=== PATIENT | female | born 1940 | race Two or more races ===

== ENCOUNTER 2016-07-07 12:40 | Inpatient (IN) | payer OTHER, MEDICAID ==
[~2016-07-07] VITALS: Ht 165.1 cm; Wt 74.3 kg
[~2016-07-07 12:40] MED LIST: BACL10TA; CRESTOR; LOSA50TA6; METF-312; METO-169; NAPR-607; OMEPRAZOLE DR 20 MG CAPSULE; SIMV-13; SIMVPOW2; TERB250T66
[2016-07-07 13:52] LABS: Basophils # (auto) 0 uL; Basophils % (auto) 0.5 % (0.0-2.0); Eosinophils # (auto) 0.3 uL; Eosinophils % (auto) 3.7 % (0.0-7.0); Hematocrit 42.6 % (36.0-46.0); Lymphocytes # (auto) 2.6 uL; Lymphocytes % (auto) 32.6 % (10.0-50.0); Mean Corpuscular Hemoglobin 28.5 pg (28.0-32.0); Mean Corpuscular Hgb Conc. 32.9 g/dL (32.0-36.0); Mean Corpuscular Volume 86.6 fL (80.0-100.0); Mean Platelet Volume 8.9 fL (7.4-10.4); Monocytes # (auto) 0.4 uL; Neutrophils # (auto) 4.6 uL; Neutrophils % (auto) 58.2 % (37.0-80.0); Platelet Count (auto) 254 10^3/uL (140-450); Red Cell Distribution Width 14.8 % (11.6-16.0); White Blood Cell 7.9 10^3/uL (4.4-10.8)
[2016-07-07 14:09] LABS: Alkaline Phosphatase 92 U/L (45-117); Anion Gap 9 (5-15); Aspartate Aminotransferase 20 U/L (15-37); BUN/Creatinine Ratio 22.8; Bilirubin, Total 0.4 mg/dL (0.2-1.0); Blood Urea Nitrogen 13 mg/dL (7-18); Calcium 9.5 mg/dL (8.5-10.1); Carbon Dioxide 27 mmol/L (21-32); Chloride 106 mmol/L (98-107); GFR African American 134 mL/min; GFR Non-African American 111 mL/min; Glucose 92 mg/dL (74-106); Potassium 3.9 mmol/L (3.5-5.1); Sodium 142 mmol/L (136-145); Total Protein 7.5 g/dL (6.4-8.2)
[2016-07-07 14:10] LABS: Albumin 3.7 g/dL (3.4-5.0)
[2016-07-07 16:13] LABS: Urine RBC None Seen /hpf (0 - 4)
[2016-07-07 17:10] LABS: Urine Bilirubin Negative (Negative); Urine Blood Negative /uL (Negative); Urine Color Yellow (Yellow); Urine Glucose Normal (Normal); Urine Ketone Negative (Negative); Urine Nitrite POSITIVE (Negative); Urine Urobilinogen Normal (Negative)
[2016-07-07] MEDS ORDERED: cefTRIAXone 1GM/50ML D5W 50 ML IV ONE ×2 (17:30→18:45)
[2016-07-07] MEDS ORDERED: LORazepam 0.5 MG TAB PO PRN (18:00)
[2016-07-07] MEDS ORDERED: TEMAZEPAM 15 MG CAP PO PRN (18:00)
[2016-07-07] MEDS ORDERED: MORPHINE SULF INJ 2 MG/ML SYRINGE 1ML IV PRN ×2 (18:00)
[2016-07-07] MEDS ORDERED: DEXTROSE (50%) 50ML SYRG IV PRN (18:00)
[2016-07-07] MEDS ORDERED: PROCHLORPERAZINE EDISYLATE 5 MG/ML 2ML VIAL IV PRN (18:00)
[2016-07-07] MEDS ORDERED: BACLOFEN 10 MG TAB PO PRN (18:00)
[2016-07-07] MEDS ORDERED: ACETAMINOPHEN 500 MG TAB PO PRN (18:00)
[2016-07-07] MEDS ORDERED: NITROGLYCERIN 0.4 MG SL TAB SL PRN (18:00)
[2016-07-07] MEDS: SODIUM CHLORIDE 0.9% 1,000 ML IV SCH (18:36)
[2016-07-07] MEDS ORDERED: ASPirin 81 mg TAB PO ONE (18:45)
[2016-07-07] MEDS ORDERED: METOPROLOL SUCCINATE XL 50 MG TAB PO ONE (18:45)
[2016-07-07 19:04] LABS: Amylase 51 U/L (25-115)
[2016-07-07 22:00] VITALS: BP 118/68
[2016-07-07] MEDS: InsuLIN REG 1unit/0.01ml Soln (100units/ml) SC SCH (22:00)
[2016-07-07] MEDS: ATORVASTATIN 20 MG TAB PO SCH (22:07)
[2016-07-07] MEDS: ACCU-CHEK COMFORT CURVE STRIP VI SCH (22:13)
[2016-07-07 23:50] VITALS: BP 118/68
[2016-07-08 05:00] VITALS: BP 139/74
[2016-07-08] MEDS: ACCU-CHEK COMFORT CURVE STRIP VI SCH ×4 (06:37→22:00)
[2016-07-08] MEDS: LOSARTAN POTASSIUM 50 MG TAB PO SCH (06:37)
[2016-07-08] MEDS: InsuLIN REG 1unit/0.01ml Soln (100units/ml) SC SCH ×4 (06:37→22:00)
[2016-07-08 07:37] LABS: Cholesterol 188 mg/dL (< 200); HDL Cholesterol 46 mg/dL (40-59); LDL Cholesterol 122 mg/dL (< 100); Triglycerides 180 mg/dL (< 150)
[2016-07-08 08:00] VITALS: BP 137/74
[2016-07-08 08:25] VITALS: BP 129/75
[2016-07-08] MEDS: METOPROLOL SUCCINATE XL 50 MG TAB PO SCH (09:14)
[2016-07-08] MEDS: ENOXAPARIN SOD 40 MG/0.4 ML SYRINGE SC SCH (09:15)
[2016-07-08] MEDS: ASPirin 81 mg TAB PO SCH (09:15)
[2016-07-08] MEDS: cefTRIAXone 1GM/50ML D5W 50 ML IV SCH (09:15)
[2016-07-08] MEDS: HYDROcodone-ACET 5/325MG TAB PO PRN (09:32)
[2016-07-08] MEDS: SODIUM CHLORIDE 0.9% 1,000 ML IV SCH ×2 (12:11→20:40)
[2016-07-08 12:28] VITALS: BP 108/71
[2016-07-08 12:30] LABS: Temperature: 24.5 C (20.0-25.0)
[2016-07-08] MEDS ORDERED: SENNA 8.6 MG TAB PO PRN (16:15)
[2016-07-08 16:57] VITALS: BP 121/57
[2016-07-08 22:00] VITALS: BP 147/69
[2016-07-08] MEDS: ATORVASTATIN 20 MG TAB PO SCH (22:37)
[2016-07-09 05:33] VITALS: BP 141/80
[2016-07-09] MEDS: LOSARTAN POTASSIUM 50 MG TAB PO SCH (06:10)
[2016-07-09 06:27] LABS: BUN/Creatinine Ratio 23.9; Calcium 8.8 mg/dL (8.5-10.1); Magnesium 2.3 mg/dL (1.6-2.6); Potassium 3.8 mmol/L (3.5-5.1)
[2016-07-09] MEDS: InsuLIN REG 1unit/0.01ml Soln (100units/ml) SC SCH ×4 (07:00→21:35)
[2016-07-09] MEDS: ACCU-CHEK COMFORT CURVE STRIP VI SCH ×4 (07:06→21:34)
[2016-07-09 09:00] VITALS: BP 146/78
[2016-07-09] MEDS: ENOXAPARIN SOD 40 MG/0.4 ML SYRINGE SC SCH (09:53)
[2016-07-09] MEDS: cefTRIAXone 1GM/50ML D5W 50 ML IV SCH (09:53)
[2016-07-09] MEDS: ASPirin 81 mg TAB PO SCH (09:53)
[2016-07-09] MEDS: METOPROLOL SUCCINATE XL 50 MG TAB PO SCH (09:54)
[2016-07-09] MEDS: SODIUM CHLORIDE 0.9% 1,000 ML IV SCH ×2 (10:00→23:20)
[2016-07-09 15:19] VITALS: BP 154/79
[2016-07-09 17:57] VITALS: BP 127/61
[2016-07-09] MEDS: ATORVASTATIN 20 MG TAB PO SCH (21:34)
[2016-07-09 21:42] VITALS: BP 150/70
[2016-07-10] MEDS: HYDROcodone-ACET 5/325MG TAB PO PRN ×2 (04:20→20:01)
[2016-07-10 05:00] VITALS: BP 150/80
[2016-07-10] MEDS: LOSARTAN POTASSIUM 50 MG TAB PO SCH (06:36)
[2016-07-10] MEDS: ACCU-CHEK COMFORT CURVE STRIP VI SCH ×4 (06:36→22:05)
[2016-07-10] MEDS: InsuLIN REG 1unit/0.01ml Soln (100units/ml) SC SCH ×4 (06:36→22:00)
[2016-07-10 08:49] VITALS: BP 152/76
[2016-07-10] MEDS: ASPirin 81 mg TAB PO SCH (09:15)
[2016-07-10] MEDS: cefTRIAXone 1GM/50ML D5W 50 ML IV SCH (09:15)
[2016-07-10] MEDS: METOPROLOL SUCCINATE XL 50 MG TAB PO SCH (09:16)
[2016-07-10] MEDS: ENOXAPARIN SOD 40 MG/0.4 ML SYRINGE SC SCH (09:16)
[2016-07-10] MEDS: SODIUM CHLORIDE 0.9% 1,000 ML IV SCH (12:40)
[2016-07-10 12:48] VITALS: BP 139/70
[2016-07-10 17:07] VITALS: BP 116/52
[2016-07-10 22:00] VITALS: BP 126/65
[2016-07-10] MEDS: ATORVASTATIN 20 MG TAB PO SCH (22:05)
[2016-07-11] VITALS (7 sets, daily range): BP systolic 124–139; BP diastolic 66–76
[2016-07-11] MEDS: SODIUM CHLORIDE 0.9% 1,000 ML IV SCH ×2 (02:00→15:20)
[2016-07-11] MEDS: ACCU-CHEK COMFORT CURVE STRIP VI SCH ×4 (06:14→22:11)
[2016-07-11] MEDS: LOSARTAN POTASSIUM 50 MG TAB PO SCH (06:14)
[2016-07-11] MEDS: InsuLIN REG 1unit/0.01ml Soln (100units/ml) SC SCH ×4 (06:15→22:00)
[2016-07-11] MEDS: cefTRIAXone 1GM/50ML D5W 50 ML IV SCH (09:37)
[2016-07-11] MEDS: ASPirin 81 mg TAB PO SCH (09:37)
[2016-07-11] MEDS: ENOXAPARIN SOD 40 MG/0.4 ML SYRINGE SC SCH (09:38)
[2016-07-11] MEDS: METOPROLOL SUCCINATE XL 50 MG TAB PO SCH (09:38)
[2016-07-11] MEDS ORDERED: NITR-48 PO (14:11)
[2016-07-11] MEDS: HYDROcodone-ACET 5/325MG TAB PO PRN ×2 (17:07→23:19)
[2016-07-11] MEDS: ATORVASTATIN 20 MG TAB PO SCH (22:11)
[2016-07-12] MEDS: SODIUM CHLORIDE 0.9% 1,000 ML IV SCH (05:32)
[2016-07-12 05:46] VITALS: BP 118/62
[2016-07-12] MEDS: ACCU-CHEK COMFORT CURVE STRIP VI SCH ×2 (06:55→11:30)
[2016-07-12] MEDS: LOSARTAN POTASSIUM 50 MG TAB PO SCH (06:55)
[2016-07-12] MEDS: InsuLIN REG 1unit/0.01ml Soln (100units/ml) SC SCH ×2 (06:55→11:30)
[2016-07-12 07:56] VITALS: BP 106/53
[2016-07-12 08:00] VITALS: BP 106/53
[2016-07-12] MEDS: cefTRIAXone 1GM/50ML D5W 50 ML IV SCH (09:00)
[2016-07-12] MEDS: METOPROLOL SUCCINATE XL 50 MG TAB PO SCH (10:00)
[2016-07-12] MEDS: ASPirin 81 mg TAB PO SCH (10:00)
[2016-07-12 11:37] VITALS: BP 140/75
== END 2016-07-12 13:40 | disposition home or self-care (01) | DRG 872 ==
LOC: ER 12:40 → TELE 12:41 → TELE-WESTW 20:28
PROVIDERS: ADMIT Internal Medicine; ATTEND Internal Medicine
DX: A41.51 Sepsis due to Escherichia coli [E. coli] (principal); N39.0 Urinary tract infection, site not specified; K57.90 Diverticulosis of intestine, part unspecified, without perforation or abscess without bleeding; I10 Essential (primary) hypertension; J45.909 Unspecified asthma, uncomplicated; M06.9 Rheumatoid arthritis, unspecified; E11.9 Type 2 diabetes mellitus without complications; E78.5 Hyperlipidemia, unspecified; E86.0 Dehydration; I15.9 Secondary hypertension, unspecified; M47.9 Spondylosis, unspecified; R31.9 Hematuria, unspecified; M19.90 Unspecified osteoarthritis, unspecified site; Z79.899 Other long term (current) drug therapy; Z86.73 Personal history of transient ischemic attack (TIA), and cerebral infarction without residual deficits
CPT/HCPCS: 36415; 70450; 70551; 71020; 74176; 80048; 80053; 80061; 81001; 82150; 82378; 82550; 82607; 82746; 82962; 83036; 83735; 84443; 84484; 85025; 85379; 86141; 87040; 87086; 87088; 87186; 93005; 96360; 99291; G0434; J0696

== ENCOUNTER 2017-08-19 12:02 | Inpatient (IN) | payer OTHER, MEDICAID ==
[~2017-08-19] VITALS: Ht 162.6 cm; Wt 85.7 kg
[~2017-08-19 12:02] MED LIST changes: -LOSA50TA6; +LOSA50TA6 PO; -METF-312; +METF-370 PO; -NAPR-607; +NAPR500T31 PO; +NITR-48 PO
[2017-08-19 13:39] LABS: Urine WBC None Seen /hpf (0 - 5)
[2017-08-19 14:02] LABS: Urine Bacteria NONE SEEN /hpf (None Seen); Urine Blood Negative /uL (Negative); Urine Specific Gravity 1.008 (1.001-1.035)
[2017-08-19 14:09] LABS: Basophils # (auto) 0 uL; Basophils % (auto) 0.7 % (0.0-2.0); Eosinophils # (auto) 0.3 uL; Eosinophils % (auto) 3.8 % (0.0-7.0); Hematocrit 43.1 % (36.0-46.0); Hemoglobin 14.4 g/dL (12.2-16.2); Lymphocytes # (auto) 2.3 uL; Lymphocytes % (auto) 34.8 % (10.0-50.0); Mean Corpuscular Hemoglobin 28.6 pg (28.0-32.0); Mean Corpuscular Hgb Conc. 33.4 g/dL (32.0-36.0); Mean Corpuscular Volume 85.5 fL (80.0-100.0); Monocytes # (auto) 0.6 uL; Neutrophils # (auto) 3.5 uL; Neutrophils % (auto) 51.7 % (37.0-80.0); Platelet Count (auto) 239 10^3/uL (140-450); Red Blood Cells 5.04 10^6/uL (4.0-5.20); Red Cell Distribution Width 14.1 % (11.8-14.3); White Blood Cell 6.7 10^3/uL (4.4-10.8)
[2017-08-19 14:10] LABS: Alanine Aminotransferase 44 U/L (13-56); Albumin 3.8 g/dL (3.4-5.0); Alkaline Phosphatase 98 U/L (45-117); Anion Gap 10 (5-15); Aspartate Aminotransferase 35 U/L (15-37); BUN/Creatinine Ratio 24.2; Bilirubin, Total 0.3 mg/dL (0.2-1.0); Blood Urea Nitrogen 15 mg/dL (7-18); Calcium 9.1 mg/dL (8.5-10.1); Carbon Dioxide 27 mmol/L (21-32); Chloride 104 mmol/L (98-107); GFR African American 121 mL/min; GFR Non-African American 100 mL/min; Glucose 122 mg/dL (74-106); Potassium 4.1 mmol/L (3.5-5.1); Sodium 141 mmol/L (136-145); Total Protein 7.7 g/dL (6.4-8.2)
[2017-08-19] MEDS ORDERED: SODIUM CHLORIDE 0.9% 1,000 ML IV ONE (17:29)
[2017-08-19] MEDS ORDERED: IPRATROPIUM BROM 0.5 MG/2.5ML INH SOL NEB ONE (20:15)
[2017-08-19] MEDS ORDERED: ALBUTEROL SULF 2.5 MG/0.5ML(0.5%) NEB SOLN NEB ONE (20:15)
[2017-08-19] MEDS ORDERED: LEVOFLOXACIN 750MG 150 ML IV ONE (21:00)
[2017-08-19] MEDS ORDERED: ACETAMINOPHEN 325 MG TAB PO ONE (22:15)
[2017-08-19] MEDS ORDERED: DEXTROSE (50%) 50ML SYRG IV PRN (23:00)
[2017-08-19] MEDS ORDERED: ONDANSETRON HCL 4 MG/2 ML VIAL IV PRN (23:00)
[2017-08-19] MEDS ORDERED: MORPHINE SULFATE 4 MG/ML SYR/VIAL IV PRN (23:00)
[2017-08-19] MEDS ORDERED: HYDROcodone-ACET 5/325MG TAB PO PRN (23:00)
[2017-08-20] VITALS (8 sets, daily range): BP systolic 122–145; BP diastolic 66–82
[2017-08-20] MEDS: ALBUTEROL SULF 2.5 MG/0.5ML(0.5%) NEB SOLN NEB SCH ×4 (00:10→19:16)
[2017-08-20] MEDS: IPRATROPIUM BROM 0.5 MG/2.5ML INH SOL NEB SCH ×4 (00:10→19:17)
[2017-08-20 06:03] LABS: Basophils # (auto) 0 uL; Basophils % (auto) 0.9 % (0.0-2.0); Eosinophils # (auto) 0.3 uL; Eosinophils % (auto) 5.2 % (0.0-7.0); Hematocrit 36.8 % (36.0-46.0); Hemoglobin 12.5 g/dL (12.2-16.2); Lymphocytes # (auto) 2.5 uL; Lymphocytes % (auto) 46.7 % (10.0-50.0); Mean Corpuscular Hemoglobin 29.1 pg (28.0-32.0); Mean Corpuscular Volume 85.6 fL (80.0-100.0); Monocytes # (auto) 0.8 uL; Monocytes % (auto) 15.1 % (0.0-12.0); Neutrophils # (auto) 1.7 uL; Neutrophils % (auto) 32.1 % (37.0-80.0); Nucleated Red Blood Cells % 0.1 %; Platelet Count (auto) 193 10^3/uL (140-450); Red Cell Distribution Width 14.1 % (11.8-14.3); White Blood Cell 5.4 10^3/uL (4.4-10.8)
[2017-08-20 06:29] LABS: BUN/Creatinine Ratio 26.8; Calcium 8.2 mg/dL (8.5-10.1)
[2017-08-20] MEDS: ACCU-CHEK COMFORT CURVE STRIP VI SCH ×4 (06:54→22:00)
[2017-08-20] MEDS: InsuLIN REG 1unit/0.01ml Soln (100units/ml) SC SCH ×4 (06:55→22:54)
[2017-08-20] MEDS: metFORMIN HYDROCHLORIDE 500 MG TAB PO SCH ×2 (07:12→17:26)
[2017-08-20] MEDS: AZITHROMYCIN 500MG/ 250ML 250 ML IV SCH (09:52)
[2017-08-20] MEDS: amLODIPine BESYLATE 5 MG TAB PO SCH (09:52)
[2017-08-20] MEDS: LOSARTAN POTASSIUM 50 MG TAB PO SCH (09:52)
[2017-08-20] MEDS: METOPROLOL SUCCINATE XL 50 MG TAB PO SCH (09:53)
[2017-08-20] MEDS: ACETAMINOPHEN 500 MG TAB PO PRN (21:01)
[2017-08-20] MEDS: MONTELUKAST SODIUM 10 MG TAB PO SCH (22:21)
[2017-08-20] MEDS: cefTRIAXone 1GM/10ml IVPUSH 10 ML IV SCH (22:21)
[2017-08-20] MEDS: methylPREDNISolone SOD SUCC 40 MG/ML VL IV SCH (22:21)
[2017-08-21] MEDS ORDERED: guaiFENesin-DM 100/10mg/5ml SYR PO PRN
[2017-08-21] MEDS: IPRATROPIUM BROM 0.5 MG/2.5ML INH SOL NEB SCH ×4 (00:47→19:20)
[2017-08-21] MEDS: ALBUTEROL SULF 2.5 MG/0.5ML(0.5%) NEB SOLN NEB SCH ×4 (00:47→19:21)
[2017-08-21 05:00] VITALS: BP 115/80
[2017-08-21 05:38] LABS: Basophils # (auto) 0 uL; Basophils % (auto) 0.3 % (0.0-2.0); Eosinophils # (auto) 0 uL; Eosinophils % (auto) 0.2 % (0.0-7.0); Hematocrit 41.3 % (36.0-46.0); Hemoglobin 13.7 g/dL (12.2-16.2); Lymphocytes # (auto) 1.5 uL; Lymphocytes % (auto) 28.6 % (10.0-50.0); Mean Corpuscular Hemoglobin 28.4 pg (28.0-32.0); Monocytes # (auto) 0.1 uL; Monocytes % (auto) 1.9 % (0.0-12.0); Neutrophils # (auto) 3.5 uL; Platelet Count (auto) 215 10^3/uL (140-450); Red Blood Cells 4.81 10^6/uL (4.0-5.20); Red Cell Distribution Width 14.1 % (11.8-14.3); White Blood Cell 5.1 10^3/uL (4.4-10.8)
[2017-08-21] MEDS: metFORMIN HYDROCHLORIDE 500 MG TAB PO SCH ×2 (05:59→18:03)
[2017-08-21] MEDS: ACCU-CHEK COMFORT CURVE STRIP VI SCH ×4 (06:52→21:47)
[2017-08-21] MEDS: InsuLIN REG 1unit/0.01ml Soln (100units/ml) SC SCH ×4 (06:54→21:47)
[2017-08-21] MEDS: methylPREDNISolone SOD SUCC 40 MG/ML VL IV SCH ×2 (08:41→21:46)
[2017-08-21] MEDS: cefTRIAXone 1GM/10ml IVPUSH 10 ML IV SCH (08:41)
[2017-08-21] MEDS: METOPROLOL SUCCINATE XL 50 MG TAB PO SCH (08:43)
[2017-08-21] MEDS: AZITHROMYCIN 500MG/ 250ML 250 ML IV SCH (08:44)
[2017-08-21] MEDS: amLODIPine BESYLATE 5 MG TAB PO SCH (08:44)
[2017-08-21] MEDS: LOSARTAN POTASSIUM 50 MG TAB PO SCH (08:44)
[2017-08-21 09:00] VITALS: BP 130/73
[2017-08-21 13:00] VITALS: BP 108/57
[2017-08-21] MEDS ORDERED: AMOX-263 PO (14:21)
[2017-08-21] MEDS ORDERED: AZIT500T4 PO (14:21)
[2017-08-21 17:18] VITALS: BP 105/54
[2017-08-21] MEDS: ACETAMINOPHEN 500 MG TAB PO PRN (20:06)
[2017-08-21] MEDS ORDERED: TEMAZEPAM 15 MG CAP PO PRN (21:30)
[2017-08-21] MEDS: MONTELUKAST SODIUM 10 MG TAB PO SCH (21:46)
[2017-08-21] MEDS: FLUTICASONE PROP NASAL SPR 0.05 % (50MCG) 16GM EACHNOSTRI SCH (21:46)
[2017-08-21 22:00] VITALS: BP 113/61
[2017-08-22] MEDS: IPRATROPIUM BROM 0.5 MG/2.5ML INH SOL NEB SCH ×3 (00:58→11:58)
[2017-08-22] MEDS: ALBUTEROL SULF 2.5 MG/0.5ML(0.5%) NEB SOLN NEB SCH ×3 (00:58→11:58)
[2017-08-22 05:00] VITALS: BP 110/64
[2017-08-22] MEDS: InsuLIN REG 1unit/0.01ml Soln (100units/ml) SC SCH ×2 (06:32→10:51)
[2017-08-22] MEDS: metFORMIN HYDROCHLORIDE 500 MG TAB PO SCH (06:32)
[2017-08-22] MEDS: ACCU-CHEK COMFORT CURVE STRIP VI SCH ×2 (06:32→10:50)
[2017-08-22] MEDS: cefTRIAXone 1GM/10ml IVPUSH 10 ML IV SCH (08:51)
[2017-08-22] MEDS: FLUTICASONE PROP NASAL SPR 0.05 % (50MCG) 16GM EACHNOSTRI SCH (08:51)
[2017-08-22] MEDS: methylPREDNISolone SOD SUCC 40 MG/ML VL IV SCH (08:52)
[2017-08-22] MEDS: AZITHROMYCIN 500MG/ 250ML 250 ML IV SCH (08:52)
[2017-08-22] MEDS: METOPROLOL SUCCINATE XL 50 MG TAB PO SCH (08:53)
[2017-08-22] MEDS: LOSARTAN POTASSIUM 50 MG TAB PO SCH (08:53)
[2017-08-22] MEDS: amLODIPine BESYLATE 5 MG TAB PO SCH (08:53)
[2017-08-22 09:00] VITALS: BP 126/69
[2017-08-22 13:09] VITALS: BP 130/75
== END 2017-08-22 12:41 | disposition home or self-care (01) | DRG 178 ==
LOC: ER 12:02 → TELE 12:03 → WEST WING 08-20 00:01 → TELE-WESTW 08-20 10:51
PROVIDERS: ADMIT Nurse Practitioner Family; ATTEND Internal Medicine
DX: J15.212 Pneumonia due to Methicillin resistant Staphylococcus aureus (principal); J45.901 Unspecified asthma with (acute) exacerbation; E11.9 Type 2 diabetes mellitus without complications; M06.9 Rheumatoid arthritis, unspecified; I10 Essential (primary) hypertension; M19.90 Unspecified osteoarthritis, unspecified site; E66.9 Obesity, unspecified; K21.9 Gastro-esophageal reflux disease without esophagitis; Z68.32 Body mass index [BMI] 32.0-32.9, adult; Z79.84 Long term (current) use of oral hypoglycemic drugs; Z79.899 Other long term (current) drug therapy
CPT/HCPCS: 36415; 71045; 71046; 80048; 80053; 81001; 82962; 83735; 84132; 84443; 84484; 85025; 85379; 87040; 87070; 87077; 87186; 87205; 93005; 94640; 94761; 96361; 96365; J1815; J1956

== ENCOUNTER 2018-06-29 20:52 | Emergency (ER) | payer OTHER, MEDICAID ==
[~2018-06-29] VITALS: Ht 165.1 cm; Wt 79.4 kg
[~2018-06-29 20:52] MED LIST changes: +ATOR40TA52 PO; -BACL10TA; +CLON0.1T PO; -CRESTOR; +LOSA-46 PO; -LOSA50TA6 PO; -NAPR500T31 PO; -NITR-48 PO; -SIMV-13; -TERB250T66
[2018-06-30 07:09] VITALS: BP 125/83
[2018-06-30] MEDS ORDERED: IBUPROFEN 800 MG TAB PO ONE (07:15)
== END 2018-06-30 07:15 | disposition home or self-care (01) ==
LOC: ER 20:52
DX: S46.911A Strain of unspecified muscle, fascia and tendon at shoulder and upper arm level, right arm, initial encounter (principal); S53.401A Unspecified sprain of right elbow, initial encounter; S80.01XA Contusion of right knee, initial encounter; J45.909 Unspecified asthma, uncomplicated; E11.9 Type 2 diabetes mellitus without complications; K21.9 Gastro-esophageal reflux disease without esophagitis; E78.5 Hyperlipidemia, unspecified; I10 Essential (primary) hypertension; W22.8XXA Striking against or struck by other objects, initial encounter; Y93.89 Activity, other specified; Y92.098 Other place in other non-institutional residence as the place of occurrence of the external cause; Y99.8 Other external cause status
CPT/HCPCS: 73030; 73080; 73562; 73630

== ENCOUNTER 2018-09-13 09:06 | Emergency (ER) | payer OTHER, MEDICAID ==
[~2018-09-13] VITALS: Ht 162.6 cm; Wt 80.7 kg
[2018-09-13 09:53] LABS: Urine Bacteria FEW /hpf (None Seen); Urine Blood Negative /uL (Negative); Urine Mucus FEW (None Seen); Urine Specific Gravity 1.025 (1.001-1.035); Urine WBC 14 /hpf (0 - 5)
[2018-09-13 10:15] LABS: Basophils # (auto) 0.1 uL; Basophils % (auto) 0.6 % (0.0-2.0); Eosinophils # (auto) 0.1 uL; Eosinophils % (auto) 1.4 % (0.0-7.0); Hematocrit 38.9 % (36.0-46.0); Hemoglobin 13.4 g/dL (12.2-16.2); Lymphocytes # (auto) 2.3 uL; Lymphocytes % (auto) 27.8 % (10.0-50.0); Mean Corpuscular Hemoglobin 29.7 pg (28.0-32.0); Mean Corpuscular Hgb Conc. 34.3 g/dL (32.0-36.0); Mean Corpuscular Volume 86.6 fL (80.0-100.0); Monocytes # (auto) 0.5 uL; Monocytes % (auto) 6.7 % (0.0-12.0); Neutrophils # (auto) 5.2 uL; Neutrophils % (auto) 63.5 % (37.0-80.0); Platelet Count (auto) 239 10^3/uL (140-450); Red Blood Cells 4.49 10^6/uL (4.0-5.20); Red Cell Distribution Width 14.7 % (11.8-14.3); White Blood Cell 8.2 10^3/uL (4.4-10.8)
[2018-09-13 10:32] LABS: Calcium 8.4 mg/dL (8.5-10.1); Potassium 3.7 mmol/L (3.5-5.1)
[2018-09-13 10:35] LABS: BUN/Creatinine Ratio 28.1; Bilirubin, Total 0.3 mg/dL (0.2-1.0); Total Protein 6.5 g/dL (6.4-8.2)
[2018-09-13] MEDS ORDERED: cefTRIAXone 1GM/50ML D5W 50 ML IV ONE (11:45)
[2018-09-13 15:50] VITALS: BP 152/73
== END 2018-09-13 16:15 | disposition home or self-care (01) ==
LOC: ER 09:06
DX: N39.0 Urinary tract infection, site not specified (principal); K80.80 Other cholelithiasis without obstruction; M19.90 Unspecified osteoarthritis, unspecified site; J45.909 Unspecified asthma, uncomplicated; E11.9 Type 2 diabetes mellitus without complications; K21.9 Gastro-esophageal reflux disease without esophagitis; E78.5 Hyperlipidemia, unspecified; I10 Essential (primary) hypertension; Z79.899 Other long term (current) drug therapy; Z79.84 Long term (current) use of oral hypoglycemic drugs
CPT/HCPCS: 36415; 74176; 80053; 81001; 85025; 93005; 96365; 99284; J0696

== ENCOUNTER 2024-10-09 17:30 | Inpatient (IN) | payer OTHER, MEDICAID ==
[~2024-10-09] VITALS: Ht 157.5 cm; Wt 79.8 kg
[~2024-10-09 17:30] MED LIST changes: +AMLO1TAB22 PO; +ASPI-543 PO; +ATOR20TA50 PO; -ATOR40TA52 PO; -CLON0.1T PO; +LORA-622 PO; -LOSA-46 PO; +LOSA-534 PO; +MECL-90 PO; -METO-169; +OME20T PO; -OMEPRAZOLE DR 20 MG CAPSULE; +PRAS10TA19 PO; -SIMVPOW2
[2024-10-09] MEDS: IPRATROPIUM BROM 0.5 MG/2.5ML INH SOL NEB ONE (17:55)
[2024-10-09] MEDS: ALBUTEROL SULF 2.5 MG/0.5ML(0.5%) NEB SOLN NEB ONE (17:55)
--- NOTE | 2024-10-09 17:56 | ED.PDOC ---
History of Present Illness HPI Comments 84-year-old female with a history of asthma, diabetes and prior bladder lift brought in by EMS from [facility] where she presented complaining of suprapubic pain radiating to the right lower quadrant for the last 2 days. Patient also notes shortness a breath that started today. According to EMS, patient was found to be hypoxic on room air, saturating around 88% at the clinic. She was administered a breathing treatment which improved her oxygen saturation to the low 90s on room air. She was placed on 6 L nasal cannula by EMS for transport, and is now saturating 96%. She denies any chest pain or edema. She states she has had painful urination, urinary frequency and urgency along with the suprapubic pain. She denies any fever, vomiting, diarrhea or constipation. Chief Complaint: Abdominal Pain Time Seen by MD: 17:34 Primary Care Provider: MARCELLA IRENE Allergies: Coded Allergies: NO KNOWN ALLERGIES (Unverified , 12/06/18) Home Meds Reported Medications Prasugrel Hydrochloride (Effient) 10 Mg Tab, 10 MG PO DAILY, TAB 12/13/18 Aspirin (Aspir-Low) 81 Mg Tab, 81 MG PO DAILY for 30 Days, MG 12/13/18 Metformin Hydrochloride (Metformin Hcl) 500 Mg Tab, 500 MG PO IBID for 30 Days, MG 12/06/18 Losartan Potassium (Losartan Potassium) 50 Mg Tab, 50 MG PO BID for 30 Days, MG 12/06/18 Amlodipine Besylate (Amlodipine Besylate) 5 Mg Tab, 5 MG PO DAILY for 30 Days, MG 12/06/18 Atorvastatin Calcium (ATORVASTATIN CALCIUM) 20 Mg Tab, 1 TAB PO DAILY, #30 TAB 5 Refills 12/06/18 Meclizine Hcl (Meclizine Hcl) 25 Mg Tab, 25 MG PO DAILYPRN for 30 Days, MG 12/06/18 Loratadine (Claritin) 10 Mg Tab, 1 TAB PO DAILY, #30 TAB 5 Refills 12/06/18 Omeprazole (Omeprazole) 20 Mg Cap, 20 MG PO DAILY, CAP 12/06/18 Past Medical History PAST MEDICAL HISTORY: Arthritis, Asthma, DM, GERD, High Lipids, HTN Surgical History: Surgical History (Other): Bladder lift BUSINESS PROCESS CONSULTANT History: No Pertinent BUSINESS PROCESS CONSULTANT History Family History Family History: Reviewed,noncontributory to illness Social History Smoker: Non-Smoker Alcohol: Denies ETOH Use Drugs: Denies Drug Use Lives In: Home All Other Systems: Reviewed and Negative (Comprehensive systems review obtained and negative except for what is stated in the HPI.) Physical Exam General Appearance: No Apparent Distress, Obese HEENT: Other (Pupils and face symmetric. Moist mucous membranes.) Neck: Full Range of Motion, Normal Inspection Respiratory: Decreased Breath Sounds, No Accessory Muscle Use, No Respiratory Distress, Wheezing (Scattered mild expiratory wheezes) Cardiovascular: No Edema, No JVD, Regular Rate/Rhythm Breast Exam: Deferred Gastrointestinal: RLQ, Soft, Suprapubic, Tenderness Genitalia: Deferred Pelvic: Deferred Rectal: Deferred Extremities: Normal inspection, Normal range of motion, Non-tender, No pedal edema Neurologic: Alert (Oriented x4), Normal Affect, Normal Mood, Other (Ambulatory) Cerebellar Function: NOT DONE Reflexes: NOT DONE Skin: Dry, Normal Color, Warm Lymphatic: NOT DONE Was a procedure done? Was a procedure done?: No EKG EKG : Comments Sinus rhythm, rate 74, normal intervals, normal axis, normal QRS, nonspecific T change. Differential Dx Considerations may include: Asthma, CHF, COPD, bronchitis, pneumonia, URI, UTI (cystitis, urethritis, pyelonephritis), among others X-Ray, Labs, Meds, VS Vital Signs Date Time Temp Pulse Resp B/P (MAP) Pulse Ox O2 Delivery O2 Flow Rate FiO2 10/09/24 20:54 97.7 77 16 170/66 (100) 94 97.7 10/09/24 17:55 18 97 Nasal Cannula* 6 44 10/09/24 17:47 74 10/09/24 17:45 98.2 74 18 167/83 (111) 94 98.2 Lab Test 10/09/24 21:15 10/09/24 20:41 10/09/24 18:50 10/09/24 17:55 Range/Units Influenza Type A Antigen Negative Negative Influenza Type B Antigen Negative Negative SARS-CoV-2 Antigen (Rapid) Negative NEGATIVE Troponin I High Sensitivity 3 L 5 3 L </=34 ng/L White Blood Count 7.5 4.4-10.8 10^3/uL Red Blood Count 4.35 4.0-5.20 10^6/uL Hemoglobin 12.6 12.2-16.2 g/dL Hematocrit 38.2 36.0-46.0 % Mean Corpuscular Volume 87.7 80.0-100.0 fL Mean Corpuscular Hemoglobin 29.0 28.0-32.0 pg Mean Corpuscular Hemoglobin Concent 33.1 32.0-36.0 g/dL Red Cell Distribution Width 14.8 H 11.8-14.3 % Platelet Count 198 140-450 10^3/uL Mean Platelet Volume 8.8 6.9-10.8 fL Neutrophils (%) (Auto) 42.8 37.0-80.0 % Lymphocytes (%) (Auto) 39.1 10.0-50.0 % Monocytes (%) (Auto) 8.8 0.0-12.0 % Eosinophils (%) (Auto) 8.6 H 0.0-7.0 % Basophils (%) (Auto) 0.7 0.0-2.0 % Neutrophils # (Auto) 3.2 1.6-8.6 10 ^3/uL Lymphocytes # (Auto) 2.9 0.4-5.4 10 ^3/uL Monocytes # (Auto) 0.7 0-1.3 10 ^3/uL Eosinophils # (Auto) 0.6 0-0.8 10 ^3/uL Basophils # (Auto) 0.1 0-0.2 10 ^3/uL Nucleated Red Blood Cells 0.1 % Sodium Level 144 136-145 mmol/L Potassium Level 4.2 3.5-5.1 mmol/L Chloride Level 106 98-107 mmol/L Carbon Dioxide Level 28 20-31 mmol/L Anion Gap 10 5-15 Blood Urea Nitrogen 20 9-23 mg/dL Creatinine 0.88 0.550-1.02 mg/dL Glomerular Filtration Rate Calc 66 >90 mL/min BUN/Creatinine Ratio 22.7 H 10.0-20.0 Serum Glucose 146 H 74-106 mg/dL Lactic Acid Level 1.5 0.4-2.0 mmol/L Calcium Level 10.0 8.7-10.4 mg/dL B-Type Natriuretic Peptide 41.78 0-100 pg/mL Current Medications Medications (Trade) Dose Ordered Sig/Erin Route Start Time Stop Time Status Last Admin Albuterol (Ventolin Medneb) 5 mg ONCE ONCE NEB 10/09/24 17:45 10/09/24 17:46 DC 10/09/24 17:55 Ipratropium [place] (Atrovent Medneb) 0.5 mg ONCE ONCE NEB 10/09/24 17:45 10/09/24 17:46 DC 10/09/24 17:55 PROCEDURE(s): CXRP - CHEST PORTABLE REASON: sob ORDER NUMBER(s): [id number], ACCESSION NUMBER(s): [id number] CHEST RADIOGRAPH Indication: sob Technique: Single frontal view of the chest was obtained Comparison: None FINDINGS: Lines and Tubes: None Lungs: Mild interstitial prominence in both lung bases. Acute versus chronic disease or both in the differential and can not be distinguished without comparison films. Pleura: No effusion. No pneumothorax. Cardiomediastinal contours: Unremarkable Bones: No acute osseous abnormality. IMPRESSION: 1. Prominent interstitial disease in both lung bases. These findings are consistent with acute or chronic disease. 2. Narrowing of the right acromioclavicular joint may represent chronic rotator cuff tear consider MRI for further evaluation if clinically important. EDURE(s): ABPL - CT AB PEL WO CON-NO ORAL OR IV REASON: rlq pain ORDER NUMBER(s): [id number], ACCESSION NUMBER(s): [id number] Exam: CT CT AB PEL WO CON-NO ORAL OR IV History: rlq pain Comparison Study: None TECHNIQUE: Multidetector CT of the abdomen and pelvis without IV contrast. Axial, coronal and sagittal multiplanar reformats were obtained from the axial data set by the technologist. Radiation Dose Information: CT Dose: CTDI volume is 16.74 mGy. Dose-length product is 968.85 mGy*cm FINDINGS: Bibasilar atelectasis. Partially visualized heart is unremarkable. 1.2 cm left hepatic lobe cyst. Otherwise, Liver, spleen, gallbladder, pancreas and adrenal glands unremarkable. 1.7 cm right renal cyst. Otherwise, kidneys, ureters and urinary bladder unremarkable. Wall calcifications of the uterus. Otherwise, uterus and adnexa unremarkable. Stomach is unremarkable. Small bowel loops unremarkable. Appendix is unremarkable. Large amount of fecal material within the colon. Descending colon and sigmoid diverticulosis without diverticulitis. No evidence of intraperitoneal free air or free fluid. [id number] atherosclerotic calcification of the aorta and bilateral iliacs. No significant lymphadenopathy. Nonspecific peripherally calcified lesions within the right hemipelvis largest measuring up to 1.6 x 3.2 cm. Peripherally calcified nodular density of the left anterior abdomen central transverse colon which may represent the posterior Calcified epiploic appendage. Small fat containing umbilical hernia. Calcified injection granulomas over the bilateral gluteal regions. Small fat containing bilateral inguinal hernias. Multilevel moderate to severe degenerative changes of the lumbar spine. Diffuse demineralization. Old fracture deformity of right posterior 11th and 10th ribs. IMPRESSION: Constipation. X-Ray, Labs, Meds, VS Comment 84-year-old female with a history of asthma, diabetes, hypertension, dyslipidemia, GERD brought in by EMS from [facility] where she presented complaining of suprapubic pain radiating to the right lower quadrant, dysuria and shortness of breath Vitals remarkable for oxygen saturation 90% on room air Exam remarkable for bilateral scattered expiratory wheezes, diminished breath sounds at both bases, suprapubic and right lower quadrant tenderness to palpation Rhythm strip independently interpreted by me: Sinus rhythm, rate 74, no ectopy. Chest x-ray IMPRESSION: 1. Prominent interstitial disease in both lung bases. These findings are consistent with acute or chronic disease. 2. Narrowing of the right acromioclavicular joint may represent chronic rotator cuff tear consider MRI for further evaluation if clinically important. CT abdomen and pelvis IMPRESSION: Constipation. CBC, basic metabolic panel, BNP, serial troponins and lactate unremarkable. UA COVID and influenza pending Patient treated with the following in the ED: Albuterol 5 mg/Atrovent 0.5 mg nebulized, Solu-Medrol 125 mg IV, Rocephin 1 g IV, Tylenol 1 g p.o. , Zithromax 500 mg IV On re-evaluation, patient states pain has improved, she is not short of breath at rest, and oxygen saturation is 97% on 6Lnc. Plan is to admit/transfer the patient for IV antibiotics and respiratory support as needed. Case discussed with [facility] Dr. Thomas will arrange for the patient to be transferred to [facility]. Authorization [id number] [facility] re-contacted us for updated vital signs. I re-evaluated the patient, who was sitting in the lobby in a chair on 6 L nasal cannula. She was not in any respiratory distress. Her oxygen saturation was 87%. An additional albuterol 5 mg/Atrovent 0.5 mg nebulizer treatment was ordered. [facility] stated their are hospitalist would not accept the patient as a transfer with that level of hypoxia, so authorized us to admit the patient here. Time of 1ST Reevaluation: 17:54 Reevaluation 1ST: Unchanged Patient Education/Counseling: Diagnosis, Treatment Family Education/Counseling: No Family Present SEPSIS Sepsis Screen SEPSIS EXCLUSION NOTE: Sepsis Exclusion Note: Patient presents with SIRS criteria, but the SIRS response is attributed to [discomfort, tachycardia due to beta agonist administration ]. Sepsis bundle is not initiated at this time, due to this reason. Further management will focus on the treatment of the above condition (s). Physician Orders Chest Portable (10/09/24 17:34) Urinalysis (10/09/24 17:34) Blood Culture (10/09/24 17:34) Urine Bacterial Culture (10/09/24 17:34) Ct Ab Pel Wo Con-No Oral Or Iv (10/09/24 17:34) Imaging Transfer Request (10/09/24 21:04) Albuterol Medneb (Ventolin Medneb) (10/10/24 01:30) Ipratropium Medneb (Atrovent Medneb) (10/10/24 01:30) Student Nurse (10/10/24 01:27) Blood Pressure (10/10/24 01:27) Pulse Oximetry (10/10/24 01:27) Vital Signs Date Time Temp Pulse Resp B/P (MAP) Pulse Ox O2 Delivery O2 Flow Rate FiO2 10/09/24 20:54 97.7 77 16 170/66 (100) 94 97.7 10/09/24 17:55 18 97 Nasal Cannula* 6 44 10/09/24 17:47 74 10/09/24 17:45 98.2 74 18 167/83 (111) 94 98.2 Laboratory Tests Test 10/09/24 17:55 Lactic Acid Level 1.5 mmol/L (0.4-2.0) White Blood Count 7.5 10^3/uL (4.4-10.8) Medications Medications Dose Ordered Sig/Erin Route Start Time Stop Time Status Last Admin Dose Admin Albuterol 5 mg ONCE ONCE NEB 10/09/24 17:45 10/09/24 17:46 DC 10/09/24 17:55 Ipratropium [place]rie 0.5 mg ONCE ONCE NEB 10/09/24 17:45 10/09/24 17:46 DC 10/09/24 17:55 Departure 1 Departure Time of Disposition: 20:15 Impression: Primary Impression: Acute respiratory failure Additional Impressions: Pneumonia Asthma exacerbation Abdominal pain Disposition: ADMITTED INPATIENT Admit to: Tele Condition: Guarded Critical Care Note Critical Care Time?: Yes (35 min-critical care time only) Critical care comment: Critical care time including multiple bedside re-evaluations, review of lab and imaging studies, and discussion of the case with the accepting provider. Patient is high risk for respiratory decompensation. Stability Stability form required: No Heart Score Heart Score: Heart Score Response (Comments) Value History N/A 0 EKG N/A 0 Age N/A 0 Risk Factors N/A 0 Troponin N/A 0 Total 0 AAYUSH MALDONADO MD Oct 09, 2024 17:56
[2024-10-09 18:20] LABS: Hematocrit 38.2 % (36.0-46.0); Hemoglobin 12.6 g/dL (12.2-16.2); Mean Corpuscular Hemoglobin 29.0 pg (28.0-32.0); Mean Corpuscular Volume 87.7 fL (80.0-100.0); Nucleated Red Blood Cells % 0.1 %
[2024-10-09 18:26] LABS: Chloride 106 mmol/L (98-107); Potassium 4.2 mmol/L (3.5-5.1); Sodium 144 mmol/L (136-145)
[2024-10-09 18:27] LABS: Anion Gap 10 (5-15); Calcium 10.0 mg/dL (8.7-10.4); Carbon Dioxide 28 mmol/L (20-31)
[2024-10-09 18:32] LABS: BUN/Creatinine Ratio 22.7 (10.0-20.0); Blood Urea Nitrogen 20 mg/dL (9-23)
[2024-10-09 18:33] LABS: Glucose 146 mg/dL (74-106)
--- NOTE | 2024-10-09 18:33 | DVH ---
CHEST RADIOGRAPH Indication: sob Technique: Single frontal view of the chest was obtained Comparison: None FINDINGS: Lines and Tubes: None Lungs: Mild interstitial prominence in both lung bases. Acute versus chronic disease or both in the differential and can not be distinguished without comparison films. Pleura: No effusion. No pneumothorax. Cardiomediastinal contours: Unremarkable Bones: No acute osseous abnormality. IMPRESSION: 1. Prominent interstitial disease in both lung bases. These findings are consistent with acute or chr onic disease. 2. Narrowing of the right acromioclavicular joint may represent chronic rotator cuff tear consider MR I for further evaluation if clinically important.
--- NOTE | 2024-10-09 18:57 | DVH ---
Exam: CT CT AB PEL WO CON-NO ORAL OR IV History: rlq pain Comparison Study: None TECHNIQUE: Multidetector CT of the abdomen and pelvis without IV contrast. Axial, coronal and sagitta l multiplanar reformats were obtained from the axial data set by the technologist. Radiation Dose Information: CT Dose: CTDI volume is 16.74 mGy. Dose-length product is 968.85 mGy*cm FINDINGS: Bibasilar atelectasis. Partially visualized heart is unremarkable. 1.2 cm left hepatic lobe cyst. Otherwise, Liver, spleen, gallbladder, pancreas and adrenal glands un remarkable. 1.7 cm right renal cyst. Otherwise, kidneys, ureters and urinary bladder unremarkable. Wall calcific ations of the uterus. Otherwise, uterus and adnexa unremarkable. Stomach is unremarkable. Small bowel loops unremarkable. Appendix is unremarkable. Large amount of fe jose material within the colon. Descending colon and sigmoid diverticulosis without diverticulitis. No evidence of intraperitoneal free air or free fluid. [id number] atherosclerotic calcification of the aorta and bilateral iliacs. No significant lymphadenopathy. Nonspecific peripherally calcified lesions within the right hemipelvis largest measuring up to 1.6 x 3.2 cm. Peripherally calcified nodular density of the left anterior abdomen central transverse colon which may represent the posterior Calcified epiploic appendage. Small fat containing umbilical hernia. Calcified injection granulomas over the bilateral gluteal fermin ons. Small fat containing bilateral inguinal hernias. Multilevel moderate to severe degenerative garrison ges of the lumbar spine. Diffuse demineralization. Old fracture deformity of right posterior 11th an d 10th ribs. IMPRESSION: Constipation.
--- NOTE | 2024-10-09 19:31 | ECG ---
[facility] Test Date: 2024-10-09 Test Time: 17:47:45 Pat Name: AKILAH COVARRUBIAS Department: ED Room: 0208T Gender: F Software Test Engineer: : 1940 Requested By: AAYUSH BARKLEY Order Number: [id number] Reading MD: Leo Gee Measurements Intervals Eva Rate: 74 P: 67 MN: 171 QRS: 49 QRSD: 100 T: 65 QT: 394 QTc: 438 Interpretive Statements Sinus rhythm Electronically Signed On 10-10-2024 19:07:06 PDT by Leo Gee Please click the below link to view image of tracing.
[2024-10-09] MEDS ORDERED: AZITHROMYCIN 500MG/ 250ML 250 ML IV ONE (20:15)
[2024-10-09 22:02] LABS: COVID19 ANTIGEN SOFIA FIA NEGATIVE (NEGATIVE)
[2024-10-10] VITALS (14 sets, daily range): BP systolic 107–170; BP diastolic 51–80; PULSE 16–81; RESP 16–18; TEMP 96.6–98; O2SAT 89–97
[2024-10-10] MEDS: ALBUTEROL SULF 2.5 MG/0.5ML(0.5%) NEB SOLN NEB ONE (01:34)
[2024-10-10] MEDS: IPRATROPIUM BROM 0.5 MG/2.5ML INH SOL NEB ONE (01:35)
[2024-10-10] MEDS ORDERED: MORPHINE SULFATE INJ 2 MG/ml SYRG IV PRN (03:15)
[2024-10-10] MEDS ORDERED: DEXTROSE (50%) 50ML SYRG IV PRN (03:15)
[2024-10-10] MEDS ORDERED: NITROGLYCERIN 0.4 MG SL TAB SL PRN (03:15)
[2024-10-10] MEDS ORDERED: ALBUTEROL SULF 2.5 MG/0.5ML(0.5%) NEB SOLN NEB PRN (03:15)
[2024-10-10] MEDS ORDERED: HYDROcodone-ACET 5/325MG TAB PO PRN (03:15)
[2024-10-10] MEDS ORDERED: ONDANSETRON HCL 4 MG/2 ML VIAL IV PRN (03:15)
[2024-10-10] MEDS: methylPREDNISolone SOD SUCC 125 MG/2 ML VL IV ONE (04:29)
[2024-10-10] MEDS: ACETAMINOPHEN 500 MG TAB or CAP PO ONE (04:29)
--- NOTE | 2024-10-10 04:46 | DVHHP2 ---
History of Present Illness Reason for Visit: Lower abdominal pain History of Present Illness 84-year-old female presents for evaluation of lower abdominal pain. Patient presented initially to outside clinic with complaints of lower abdominal pain radiating to her back. She was noted to be hypoxic in the mid 80s. Patient was transferred over to the emergency department for further evaluation. She does report being short of breath. She states having lower abdominal pain that started two days ago. Denies hematuria or dysuria. No fever or chills. No cough or chest pain. Past Medical History Asthma, diabetes mellitus, dyslipidemia, hypertension Past Surgical History Family History Noncontributory Smoke: No ALCOHOL: none Drugs: None Lives: with Family Review of Systems Review of Systems Review of systems are currently negative otherwise addressed in HPI. Allergies: Coded Allergies: NO KNOWN ALLERGIES (Unverified , 12/06/18) Medications Current Medications Medications Dose Ordered Sig/Erin Route Start Time Stop Time Status Last Admin Dose Admin Ceftriaxone Sodium 50 ml @ 100 mls/hr DAILY@09 IV 10/10/24 09:00 Azithromycin 250 ml @ 125 mls/hr DAILY IV 10/10/24 10:00 Atorvastatin Calcium 20 mg HS PO 10/10/24 22:00 Amlodipine Besylate 5 mg DAILY PO 10/10/24 10:00 Aspirin 81 mg DAILY PO 10/10/24 10:00 Losartan Potassium 50 mg BID PO 10/10/24 10:00 Albuterol 2.5 mg Q6HPRN PRN NEB 10/10/24 03:15 Diagnostic Test (Pha) 1 strip ACHS 10/10/24 07:00 Insulin Human Regular ACHS SC 10/10/24 07:00 Dextrose 50 ml UD PRN IV 10/10/24 03:15 Acetaminophen/ Hydrocodone Bitart 1 tab Q4HP PRN PO 10/10/24 03:15 Ondansetron HCl 4 mg Q4HP PRN IV 10/10/24 03:15 Enoxaparin Sodium 40 mg DAILY SC 10/10/24 10:00 Acetaminophen 650 mg Q6HP PRN PO 10/10/24 03:15 Nitroglycerin 0.4 mg Q5MINP PRN SL 10/10/24 03:15 Morphine Sulfate 2 mg Q30M PRN IV 10/10/24 03:15 Exam Vital Signs Vital Signs Date Time Temp Pulse Resp B/P (MAP) Pulse Ox O2 Delivery O2 Flow Rate FiO2 10/10/24 04:29 97 Room Air* 0 21 10/10/24 04:27 98.1 64 16 155/66 (95) 98.1 Exam Gen: 44-year-old female in mild distress Skin: Warm, dry, normal color and texture, no rash. HEENT: Normocephalic atraumatic, mucous membranes moist and pink. Neck: Cervical and supraclavicular nodes normal without enlargement, trachea is midline, thyroid gland is normal without masses. Pulmonary: Clear to auscultation and percussion bilaterally. Cardiac: Regular rate and rhythm. No murmur Abdomen: Soft, nontender, nondistended, bowel sounds present all 4 quadrants, no guarding, no rigidity, no organomegaly. Extremities: No cyanosis, clubbing, no edema Neuro: Cranial nerves II through XII grossly intact, normal affect and speech, no focal motor deficits. Labs/Xrays ORDERING PHYSICIAN: AAYUSH MALDONADO MD PROCEDURE(s): ABPL - CT AB PEL WO CON-NO ORAL OR IV REASON: rlq pain ORDER NUMBER(s): [id number], ACCESSION NUMBER(s): [id number] Exam: CT CT AB PEL WO CON-NO ORAL OR IV History: rlq pain Comparison Study: None TECHNIQUE: Multidetector CT of the abdomen and pelvis without IV contrast. Axial, coronal and sagittal multiplanar reformats were obtained from the axial data set by the technologist. Radiation Dose Information: CT Dose: CTDI volume is 16.74 mGy. Dose-length product is 968.85 mGy*cm FINDINGS: Bibasilar atelectasis. Partially visualized heart is unremarkable. 1.2 cm left hepatic lobe cyst. Otherwise, Liver, spleen, gallbladder, pancreas and adrenal glands unremarkable. 1.7 cm right renal cyst. Otherwise, kidneys, ureters and urinary bladder unremarkable. Wall calcifications of the uterus. Otherwise, uterus and adnexa unremarkable. Stomach is unremarkable. Small bowel loops unremarkable. Appendix is unremarkable. Large amount of fecal material within the colon. Descending colon and sigmoid diverticulosis without diverticulitis. No evidence of intraperitoneal free air or free fluid. [id number] atherosclerotic calcification of the aorta and bilateral iliacs. No significant lymphadenopathy. Nonspecific peripherally calcified lesions within the right hemipelvis largest measuring up to 1.6 x 3.2 cm. Peripherally calcified nodular density of the left anterior abdomen central transverse colon which may represent the posterior Calcified epiploic appendage. Small fat containing umbilical hernia. Calcified injection granulomas over the bilateral gluteal regions. Small fat containing bilateral inguinal hernias. Multilevel moderate to severe degenerative changes of the lumbar spine. Diffuse demineralization. Old fracture deformity of right posterior 11th and 10th ribs. IMPRESSION: Constipation. RING PHYSICIAN: AAYUSH MALDONADO MD PROCEDURE(s): CXRP - CHEST PORTABLE REASON: sob ORDER NUMBER(s): [id number], ACCESSION NUMBER(s): [id number] CHEST RADIOGRAPH Indication: sob Technique: Single frontal view of the chest was obtained Comparison: None FINDINGS: Lines and Tubes: None Lungs: Mild interstitial prominence in both lung bases. Acute versus chronic disease or both in the differential and can not be distinguished without comparison films. Pleura: No effusion. No pneumothorax. Cardiomediastinal contours: Unremarkable Bones: No acute osseous abnormality. IMPRESSION: 1. Prominent interstitial disease in both lung bases. These findings are consistent with acute or chronic disease. 2. Narrowing of the right acromioclavicular joint may represent chronic rotator cuff tear consider MRI for further evaluation if clinically important. P Labs Test 10/10/24 03:35 10/09/24 21:15 10/09/24 20:41 10/09/24 17:55 Range/Units Influenza Type A Antigen Negative Negative Influenza Type B Antigen Negative Negative SARS-CoV-2 Antigen (Rapid) Negative NEGATIVE Troponin I High Sensitivity 3 L </=34 ng/L White Blood Count 7.5 4.4-10.8 10^3/uL Red Blood Count 4.35 4.0-5.20 10^6/uL Hemoglobin 12.6 12.2-16.2 g/dL Hematocrit 38.2 36.0-46.0 % Mean Corpuscular Volume 87.7 80.0-100.0 fL Mean Corpuscular Hemoglobin 29.0 28.0-32.0 pg Mean Corpuscular Hemoglobin Concent 33.1 32.0-36.0 g/dL Red Cell Distribution Width 14.8 H 11.8-14.3 % Platelet Count 198 140-450 10^3/uL Mean Platelet Volume 8.8 6.9-10.8 fL Neutrophils (%) (Auto) 42.8 37.0-80.0 % Lymphocytes (%) (Auto) 39.1 10.0-50.0 % Monocytes (%) (Auto) 8.8 0.0-12.0 % Eosinophils (%) (Auto) 8.6 H 0.0-7.0 % Basophils (%) (Auto) 0.7 0.0-2.0 % Neutrophils # (Auto) 3.2 1.6-8.6 10 ^3/uL Lymphocytes # (Auto) 2.9 0.4-5.4 10 ^3/uL Monocytes # (Auto) 0.7 0-1.3 10 ^3/uL Eosinophils # (Auto) 0.6 0-0.8 10 ^3/uL Basophils # (Auto) 0.1 0-0.2 10 ^3/uL Nucleated Red Blood Cells 0.1 % Sodium Level 144 136-145 mmol/L Potassium Level 4.2 3.5-5.1 mmol/L Chloride Level 106 98-107 mmol/L Carbon Dioxide Level 28 20-31 mmol/L Anion Gap 10 5-15 Blood Urea Nitrogen 20 9-23 mg/dL Creatinine 0.88 0.550-1.02 mg/dL Glomerular Filtration Rate Calc 66 >90 mL/min BUN/Creatinine Ratio 22.7 H 10.0-20.0 Serum Glucose 146 H 74-106 mg/dL Lactic Acid Level 1.5 0.4-2.0 mmol/L Calcium Level 10.0 8.7-10.4 mg/dL B-Type Natriuretic Peptide 41.78 0-100 pg/mL SEPSIS Sepsis Screen Date sepsis recognized/suspect: Oct 10, 2024 Time Sepsis recognized/suspect: 431 Recent Procedure: No On Antibiotic Therapy: No Respiratory Rate >20: No Heart Rate >90: No Temp<36 C (96.8 F) or >38.3 C: No SBP <90 or MAP <65 mmHG: No New Acute Mental Status Change: No Is the patient on CPAP, BIPAP,: No Physician Orders Imaging Transfer Request (10/09/24 21:04) Occupational Therapist Per Diem (10/10/24 01:27) Blood Pressure (10/10/24 01:27) Pulse Oximetry (10/10/24 01:27) Urinalysis (10/10/24 03:15) Ceftriaxone 1gm/50ml D5w (Rocephin) (10/10/24 09:00) Azithromycin 500mg/ 250ml (Zithromax 50 (10/10/24 10:00) D-Dimer (10/10/24 03:15) Atorvastatin (Lipitor) (10/10/24 22:00) Amlodipine Tablet (Norvasc Tablet) (10/10/24 10:00) Aspirin Tablet (10/10/24 10:00) Losartan Tablet (Cozaar Tablet) (10/10/24 10:00) Albuterol Medneb (Ventolin Medneb) (10/10/24 03:15) Basic Metabolic Panel (10/11/24 04:00) Glucose Blood (Accu-Chek Comfort Curve T (10/10/24 07:00) Insulin R (Human) (Insulin R) (10/10/24 07:00) Dextrose 50% Syringe (10/10/24 03:15) Admit (10/10/24 03:15) Hydrocodone-Acet 5/325mg Tab ([place] 5/32 (10/10/24 03:15) Ondansetron Hcl (Zofran) (10/10/24 03:15) Enoxaparin Sodium (Lovenox) (10/10/24 10:00) Complete Blood Count (10/11/24 04:00) Cardiac Diet-2gna,Lofat,Lochol (10/10/24 Breakfast) Condition: Fair (10/10/24 03:15) Acetaminophen Tablet (Tylenol Tablet) (10/10/24 03:15) Bedrest With Bathroom Privileg (10/10/24 03:15) Nitroglycerin Sublingual (Ntrostat Subli (10/10/24 03:15) Morphine Sulfate Injection (10/10/24 03:15) Stat Ekg For Chest Pain (10/10/24 03:15) Notify Of Changes From Base (10/10/24 03:15) Systems Consultant For 24 Hours (10/10/24 03:15) Emergency Dysrhythmia Protocol (10/10/24 03:15) Rhythm Strips Once Every Shift (10/10/24 03:15) Oxygen By Nasal Cannula (10/10/24 03:15) Vital Signs Date Time Temp Pulse Resp B/P (MAP) Pulse Ox O2 Delivery O2 Flow Rate FiO2 10/10/24 04:29 97 Room Air* 0 21 10/10/24 04:27 98.1 64 16 155/66 (95) 99 98.1 10/10/24 03:30 97.7 68 18 170/66 96 32 97.7 10/10/24 01:35 18 92 Room Air* 0 21 10/09/24 20:54 97.7 77 16 170/66 (100) 94 97.7 Laboratory Tests Test 10/09/24 17:55 Lactic Acid Level 1.5 mmol/L (0.4-2.0) White Blood Count 7.5 10^3/uL (4.4-10.8) Medications Medications Dose Ordered Sig/Erin Route Start Time Stop Time Status Last Admin Dose Admin Acetaminophen 1,000 mg ONCE ONCE PO 10/09/24 17:45 10/09/24 17:46 DC 10/10/24 04:29 1,000 MG Albuterol 5 mg ONCE ONCE NEB 10/10/24 01:30 10/10/24 01:31 DC 10/10/24 01:34 5 MG Albuterol 5 mg ONCE ONCE NEB 10/09/24 17:45 10/09/24 17:46 DC 10/09/24 17:55 5 MG Ipratropium Fertile 0.5 mg ONCE ONCE NEB 10/10/24 01:30 10/10/24 01:31 DC 10/10/24 01:35 0.5 MG Ipratropium [place] 0.5 mg ONCE ONCE NEB 10/09/24 17:45 10/09/24 17:46 DC 10/09/24 17:55 0.5 MG Methylprednisolone Sodium Succinate 125 mg ONCE ONCE IV 10/09/24 17:45 10/09/24 17:46 DC 10/10/24 04:29 125 MG Assessment/Plan Assessment/Plan Assessment Acute hypoxic respiratory failure Community-acquired pneumonia Diabetes mellitus Possible UTI Hypertension Plan Admit the patient to telemetry to the hospitalist Med rylee Rocephin/azithromycin D-dimer pending UA pending Resume home medications Continue treatment per orders. Plan discussed with: Patient My Orders Orders - BRYAN ROSE Procedure Category Date Status Time Urinalysis LAB 10/10/24 Logged 03:15 Ceftriaxone 1gm/50ml PHA 10/10/24 In Process D5w (Rocephin) 09:00 Azithromycin 500mg/ PHA 10/10/24 In Process 250ml (Zithromax 50 10:00 D-Dimer LAB 10/10/24 In Process 03:15 Atorvastatin (Lipitor) PHA 10/10/24 In Process 22:00 Amlodipine Tablet PHA 10/10/24 In Process (Norvasc Tablet) 10:00 Aspirin Tablet PHA 10/10/24 In Process 10:00 Losartan Tablet PHA 10/10/24 In Process (Cozaar Tablet) 10:00 Albuterol Medneb PHA 10/10/24 In Process (Ventolin Medneb) 03:15 Basic Metabolic Panel LAB 10/11/24 Verified 04:00 Glucose Blood PHA 10/10/24 In Process (Accu-Chek Comfort 07:00 Insulin R (Human) PHA 10/10/24 In Process (Insulin R) 07:00 Dextrose 50% Syringe PHA 10/10/24 In Process 03:15 Admit ADMIT 10/10/24 Transmitted 03:15 Hydrocodone-Acet PHA 10/10/24 In Process 5/325mg Tab ([place] 03:15 Ondansetron Hcl PHA 10/10/24 In Process (Zofran) 03:15 Enoxaparin Sodium PHA 10/10/24 In Process (Lovenox) 10:00 Complete Blood Count LAB 10/11/24 Verified 04:00 Cardiac DIET 10/10/24 Transmitted Diet-2gna,Lofat,Lochol Breakfast Condition: Fair JESSE 10/10/24 In Process 03:15 Acetaminophen Tablet PHA 10/10/24 In Process (Tylenol Tablet) 03:15 Bedrest With Bathroom JESSE 10/10/24 In Process Privileg 03:15 Nitroglycerin PHA 10/10/24 In Process Sublingual (Ntrostat 03:15 Morphine Sulfate PHA 10/10/24 In Process Injection 03:15 Stat Ekg For Chest JESSE 10/10/24 In Process Pain 03:15 Notify Md Of Changes JESSE 10/10/24 In Process From Base 03:15 Systems Consultant For [facility] 10/10/24 In Process 24 Hours 03:15 Emergency Dysrhythmia [facility] 10/10/24 In Process Protocol 03:15 Rhythm Strips Once [facility] 10/10/24 In Process Every Shift 03:15 Oxygen By Nasal RT 10/10/24 Transmitted Cannula 03:15 Date of Service: Oct 10, 2024 Billing Provider: BRYAN ROSE Common Visit Codes: [id number] INP/OBS CARE (HIGH) BRYAN ROSE Oct 10, 2024 04:46
[2024-10-10] MEDS: cefTRIAXone 1GM/50ML D5W 50 ML IV ONE (04:48)
[2024-10-10] MEDS ORDERED: BENA-36 PO (05:40)
[2024-10-10] MEDS: ACCU-CHEK COMFORT CURVE STRIP VI SCH (06:02)
[2024-10-10] MEDS: InsuLIN REG 1unit/0.01ml Soln (100units/ml) SC SCH (06:05)
[2024-10-10] MEDS ORDERED: AZITHROMYCIN 500MG/ 250ML 250 ML IV SCH (10:00)
[2024-10-10] MEDS: LOSARTAN POTASSIUM 50 MG TAB PO SCH (10:15)
[2024-10-10] MEDS: ENOXAPARIN SOD 40 MG/0.4 ML SYRINGE SC SCH (10:17)
[2024-10-10] MEDS: cefTRIAXone 1GM/50ML D5W 50 ML IV SCH (10:23)
--- NOTE | 2024-10-10 10:55 | DVHPN2 ---
Progress Note Date Seen: Oct 10, 2024 Medical Necessity Reason Pt with a Central, PICC or Fol: No Subjective Patient reports: No new complaints Review of Systems: HEENT:Normal, CVS:Normal, RESPIRATORY:Normal, GI:Normal, :Normal, MSK:Normal, NEURO:Normal Objective vital signs Vital Sign Date Time Temp Pulse Resp B/P (MAP) Pulse Ox O2 Delivery O2 Flow Rate FiO2 10/10/24 10:16 129/74 10/10/24 09:00 97.8 16 97 97.8 10/10/24 05:41 17 Nasal Cannula* 2 28 medications Current Medications Medications Dose Ordered Sig/Erin Route Start Time Stop Time Status Last Admin Dose Admin Ceftriaxone Sodium 50 ml @ 100 mls/hr DAILY@09 IV 10/10/24 09:00 10/10/24 10:23 100 MLS/HR Azithromycin 250 ml @ 125 mls/hr DAILY IV 10/10/24 10:00 Atorvastatin Calcium 20 mg HS PO 10/10/24 22:00 Amlodipine Besylate 5 mg DAILY PO 10/10/24 10:00 10/10/24 10:16 5 MG Aspirin 81 mg DAILY PO 10/10/24 10:00 10/10/24 10:16 81 MG Losartan Potassium 50 mg BID PO 10/10/24 10:00 10/10/24 10:15 50 MG Albuterol 2.5 mg Q6HPRN PRN NEB 10/10/24 03:15 Diagnostic Test (Pha) 1 strip ACHS 10/10/24 07:00 10/10/24 06:02 1 STRIP Insulin Human Regular ACHS SC 10/10/24 07:00 10/10/24 06:05 2 UNITS Dextrose 50 ml UD PRN IV 10/10/24 03:15 Acetaminophen/ Hydrocodone Bitart 1 tab Q4HP PRN PO 10/10/24 03:15 Ondansetron HCl 4 mg Q4HP PRN IV 10/10/24 03:15 Enoxaparin Sodium 40 mg DAILY SC 10/10/24 10:00 10/10/24 10:17 40 MG Acetaminophen 650 mg Q6HP PRN PO 10/10/24 03:15 Nitroglycerin 0.4 mg Q5MINP PRN SL 10/10/24 03:15 Morphine Sulfate 2 mg Q30M PRN IV 10/10/24 03:15 Examination: GENERAL:Normal, HEENT:Normal, NECK:Normal, LUNGS:Normal, LUNGS:Abnormal (on oxygen), CVS:Normal, ABDOMEN:Normal, MSK:Normal, SKIN:Normal, NEURO:Normal, :Normal laboratory and microbiology Laboratory Tests 10/09/24 17:55 Test 10/09/24 17:55 Range/Units Serum Glucose 146 H 74-106 mg/dL Problem List/Assessment/Plan Problem List/Assessment/Plan #1 acute resp failure: wean oxygen #2 uti: culture, iv rocephin #3 abd pain #4 dm: ssi #5 htn #6 cad #7 obesity unstable for transfer advance care planning- full code- time spent 19 mins Plan discussed with: Patient My Orders My Orders Orders - BRYAN GRAHAM MD Procedure Category Date Status Time Urine Bacterial ANILA 10/10/24 Logged Culture 10:50 Docusate Sodium PHA 10/10/24 Logged Capsule (Colace 11:00 Docusate Sodium PHA 10/10/24 Logged Capsule (Colace 11:00 Lactulose Oral PHA 10/10/24 Logged 11:00 Basic Metabolic Panel LAB 10/11/24 Verified 06:00 Complete Blood Count LAB 10/11/24 Verified 06:00 Date of Service: Oct 10, 2024 Billing Provider: BRYAN GRAHAM MD Common Visit Codes: [id number] INP/OBS CARE(HIGH) Secondary Visit Codes: [id number] CARE PLAN 30 MINUTES BRYAN GRAHAM MD Oct 10, 2024 10:55
[2024-10-10] MEDS ORDERED: DOCUSATE SOD 100 MG CAP PO PRN (11:00)
[2024-10-10 11:14] LABS: Urine Protein, UAD Negative (Negative)
[2024-10-10] MEDS: LACTULOSE 20Gm/30ML SOLN PO ONE (11:56)
[2024-10-10] MEDS: DOCUSATE SOD 100 MG CAP PO ONE (11:56)
--- NOTE | 2024-10-10 16:42 | DVHSR ---
APPROVED REPORT EXAM: Two-dimensional and M-mode echocardiogram with Doppler and color Doppler. Blood Pressure: 148/60 mmHg INDICATION EF RISK FACTORS Height: 5'2", Weight: 172 DIMENSIONS LVDd4.0 (3.8-5.7cm)LA (2D)4.4 (1.9-4.0cm)Aortic Root3.3 (2.0-3.7cm) LVDs2.6 (2.5-4.0cm)LA (MM) (1.9-4.0cm)Aortic Cusp Exc1.2 (1.5-2.0cm) EF (%) 64.0 (55-70%)Rt. Atrium4.2 (1.9-4.0cm)Asc. Aorta3.1 cm IVSd0.9 (0.7-1.1cm)RV (D)3.5 (1.8-2.4cm) PWd1.4 (0.7-1.1cm) Mitral Valve MitralMitral Stenosis E wave0.75m/sMV Mean GR.mmHg A wave1.19m/sMV Peak GR.mmHg E/A ratio0.62D MVAcm2 DECEL [id number] 1/2 [place] Aortic Valve Aortic ValveAortic Stenosis V10.92m/[place] Mean GR.9mmHg V21.95m/[place] Peak GR.15mmHg LVOT Diameter2.0 (1.8-2.4cm)Doppler AVA1.48cm2 Other Information Quality : Technically LimitedRhythm : Technically limited study due to body habitus. Conclusion Sinus rhythm. Concentric LVH. Biatrial enlargement. Aortic root enlargement. Mild aortic sclerosis. Mild mitral annular calcification. Tricuspid and pulmonic or structurally no rmal. Left ventricular function appears preserved at 60% with normal RV function. There is mild tricuspid regurgitation. Trace pulmonic insufficiency. No pericardial effusion masses or vegetations discernible. Pericardial fat pad noted.
[2024-10-10] MEDS: ATORVASTATIN 20 MG TAB PO SCH (22:00)
[2024-10-11] VITALS (9 sets, daily range): BP systolic 101–117; BP diastolic 48–73; PULSE 61–73; RESP 16; TEMP 97–97.8; O2SAT 90–94
[2024-10-11] MEDS: ACETAMINOPHEN 325 MG TAB PO PRN (05:13)
[2024-10-11 07:34] LABS: Anion Gap 8 (5-15); Carbon Dioxide 26 mmol/L (20-31); Chloride 106 mmol/L (98-107); Potassium 4.0 mmol/L (3.5-5.1); Sodium 140 mmol/L (136-145)
[2024-10-11 07:35] LABS: Calcium 10.0 mg/dL (8.7-10.4)
[2024-10-11 07:40] LABS: BUN/Creatinine Ratio 28.8 (10.0-20.0); Blood Urea Nitrogen 21 mg/dL (9-23)
[2024-10-11 07:43] LABS: Glucose 132 mg/dL (74-106)
[2024-10-11 07:55] LABS: Hematocrit 36.3 % (36.0-46.0); Hemoglobin 11.7 g/dL (12.2-16.2); Mean Corpuscular Hemoglobin 28.7 pg (28.0-32.0); Mean Corpuscular Volume 88.7 fL (80.0-100.0); Nucleated Red Blood Cells % 0.1 %
[2024-10-11] MEDS ORDERED: CEPH250C PO (15:16)
[2024-10-11] MEDS ORDERED: PHEN-922 PO (15:16)
--- NOTE | 2024-10-11 15:23 | DVHDS2 ---
Discharge Summary Date of Admission Oct 10, 2024 at 03:15 Date of Discharge: Oct 11, 2024 Labs/Diagnostic Data: Laboratory Results Test 10/11/24 11:37 10/11/24 07:00 10/10/24 11:03 10/10/24 03:35 POC Glucose 111 mg/dl (70-106) White Blood Count 9.5 10^3/uL (4.4-10.8) Red Blood Count 4.09 10^6/uL (4.0-5.20) Hemoglobin 11.7 g/dL (12.2-16.2) Hematocrit 36.3 % (36.0-46.0) Mean Corpuscular Volume 88.7 fL (80.0-100.0) Mean Corpuscular Hemoglobin 28.7 pg (28.0-32.0) Mean Corpuscular Hemoglobin Concent 32.4 g/dL (32.0-36.0) Red Cell Distribution Width 14.6 % (11.8-14.3) Platelet Count 202 10^3/uL (140-450) Mean Platelet Volume 9.2 fL (6.9-10.8) Neutrophils (%) (Auto) 73.5 % (37.0-80.0) Lymphocytes (%) (Auto) 17.2 % (10.0-50.0) Monocytes (%) (Auto) 9.0 % (0.0-12.0) Eosinophils (%) (Auto) 0.2 % (0.0-7.0) Basophils (%) (Auto) 0.1 % (0.0-2.0) Neutrophils # (Auto) 7.0 10 ^3/uL (1.6-8.6) Lymphocytes # (Auto) 1.6 10 ^3/uL (0.4-5.4) Monocytes # (Auto) 0.9 10 ^3/uL (0-1.3) Eosinophils # (Auto) 0 10 ^3/uL (0-0.8) Basophils # (Auto) 0 10 ^3/uL (0-0.2) Nucleated Red Blood Cells 0.1 % Sodium Level 140 mmol/L (136-145) Potassium Level 4.0 mmol/L (3.5-5.1) Chloride Level 106 mmol/L (98-107) Carbon Dioxide Level 26 mmol/L (20-31) Anion Gap 8 (5-15) Blood Urea Nitrogen 21 mg/dL (9-23) Creatinine 0.73 mg/dL (0.550-1.02) Glomerular Filtration Rate Calc 82 mL/min (>90) BUN/Creatinine Ratio 28.8 (10.0-20.0) Serum Glucose 132 mg/dL (74-106) Calcium Level 10.0 mg/dL (8.7-10.4) Urine Color Yellow (Yellow) Urine Clarity Clear (Clear) Urine pH 5.0 (5.0-9.0) Urine Specific [place] 1.008 (1.001-1.035) Urine Protein Negative (Negative) Urine Ketones Negative (Negative) Urine Blood Negative /uL (Negative) Urine Nitrite Negative (Negative) Urine Bilirubin Negative (Negative) Urine Urobilinogen Normal mg/dL (Negative) Urine Leukocyte Esterase Negative /uL (Negative) Urine RBC None seen /hpf (0 - 4) Urine Microscopic WBC 8 /HPF (0-5) Urine Squamous Epithelial Cells None seen /hpf (<5) Urine Bacteria None seen /hpf (None Seen) Urine Glucose Normal mg/dL (Normal) D-Dimer, Quantitative 0.61 mg/L FEU (0.0-0.49) Test 10/09/24 21:15 10/09/24 20:41 10/09/24 17:55 Influenza Type A Antigen Negative (Negative) Influenza Type B Antigen Negative (Negative) SARS-CoV-2 Antigen (Rapid) Negative (NEGATIVE) Troponin I High Sensitivity 3 ng/L (</=34) Lactic Acid Level 1.5 mmol/L (0.4-2.0) B-Type Natriuretic Peptide 41.78 pg/mL (0-100) Other Laboratory Tests 10/11/24 07:00 Brief Hx & Hospital Course: History of Present Illness 84-year-old female presents for evaluation of lower abdominal pain. Patient presented initially to outside clinic with complaints of lower abdominal pain radiating to her back. She was noted to be hypoxic in the mid 80s. Patient was transferred over to the emergency department for further evaluation. She does report being short of breath. She states having lower abdominal pain that started two days ago. Denies hematuria or dysuria. No fever or chills. No cough or chest pain. Past Medical History Asthma, diabetes mellitus, dyslipidemia, hypertension Summary: Patient presented for lower abdominal pain radiating to her back. UA concerning for UTI. Patient endorses that she has history of recurrent UTIs. Patient feeling better improve with the antibiotics. And wants to recover at home. Patient we will have to have close follow up with PCP to have follow up on UA and urine cultures. We will discharge on antibiotics Keflex twice daily for 7 days. Okay to take azo twice daily for 3 days. diagnosis: Acute complicated cystitis abdominal pain, intractable, due to above, resolved acute hypoxic respiratory failure, likely due to atelectasis, Atelectasis due to pain, due to above. diabetes , with hyperglycemia htn cad obesity Discharge plan: Continue Keflex 500 mg ( 2 tablets ), twice daily, for 7 days Take phenazopyridine 200 mg tablet, twice daily, for 3 days Follow up with PCP to follow up on symptoms, UA, urine cultures. Condition at Discharge: Fair Final Diagnosis/Problems List Acute complicated cystitis abdominal pain, intractable, due to above, resolved acute hypoxic respiratory failure, likely due to atelectasis, Atelectasis due to pain, due to see above. diabetes , with hyperglycemia htn cad obesity Discharge Disposition: Home Discharge Instruct/Medications Diet: Consistent carbohydrate, Cardiac 2g Na,low cholest Activity: No Restrictions, As Tolerated Follow Up/Referral: See below Medications: See below Scheduled Aspirin (Aspir-Low), 81 MG PO DAILY, (Reported) Atorvastatin Calcium (Atorvastatin Calcium), 1 TAB PO DAILY, (Reported) Benazepril Hcl (Benazepril Hcl), 1 TAB PO DAILY, (Reported) Cephalexin (Keflex Capsule), 2 CAP PO BID Loratadine (Claritin), 1 TAB PO DAILY, (Reported) Meclizine Hcl (Meclizine Hcl), 25 MG PO DAILYPRN, (Reported) Metformin Hydrochloride (Metformin Hcl), 500 MG PO IBID, (Reported) Omeprazole (Omeprazole), 20 MG PO DAILY, (Reported) Phenazopyridine HCl (Phenazopyridine Hydrochlo), 200 MG PO BID Prasugrel Hydrochloride (Effient), 10 MG PO DAILY, (Reported) Discharge Statement: "Patient was advised to return to the ER or call 911 if any headaches, dizziness, shortness of breath, chest pain, abdominal pain, bleeding, fevers, or worsening of medical condition. Patient was counseled about treatment plan, medications, possible side effects, patientverbalized understanding. All questions were answered to the best of my ability. This discharge took greater then 30 minutes in planning, reviewing documentation, counseling the patient, and discussing with other team members." Date of Service: Oct 11, 2024 Billing Provider: PRISCILLA PETERSEN MD Common Visit Codes: [id number] DISCH DAY >30min PRISCILLA PETERSEN MD Oct 11, 2024 15:23
== END 2024-10-11 18:56 | disposition home or self-care (01) | DRG 189 ==
LOC: EDBD 17:30 → ER 17:30 → OVERFLOW 10-10 03:15 → TELE-CENTR 10-10 03:21 → CENTRAL 10-11
PROVIDERS: ADMIT Student in an Organized Health Care Education/Training Program; ATTEND Student in an Organized Health Care Education/Training Program
DX: J96.01 Acute respiratory failure with hypoxia (principal); N30.00 Acute cystitis without hematuria; J45.901 Unspecified asthma with (acute) exacerbation; J98.11 Atelectasis; I10 Essential (primary) hypertension; E66.9 Obesity, unspecified; E11.65 Type 2 diabetes mellitus with hyperglycemia; Z68.31 Body mass index [BMI] 31.0-31.9, adult; Z20.822 Contact with and (suspected) exposure to COVID-19; I25.10 Atherosclerotic heart disease of native coronary artery without angina pectoris; K21.9 Gastro-esophageal reflux disease without esophagitis; K59.00 Constipation, unspecified; E78.5 Hyperlipidemia, unspecified
CPT/HCPCS: 36415; 71045; 74176; 80048; 81001; 82962; 83605; 83880; 84484; 85025; 85379; 87040; 87086; 87426; 87804; 93005; 93306; 94640; 96365; 96375; 99291; G0378; J1815

== ENCOUNTER 2024-11-28 20:05 | Emergency (ER) | payer OTHER, MEDICAID ==
[~2024-11-28] VITALS: Ht 165.1 cm; Wt 72.6 kg
[~2024-11-28 20:05] MED LIST changes: -AMLO1TAB22 PO; +BENA-36 PO; +CEPH250C PO; -LOSA-534 PO; +PHEN-922 PO
[2024-11-28 21:13] LABS: Hematocrit 40.0 % (36.0-46.0); Hemoglobin 13.5 g/dL (12.2-16.2); Mean Corpuscular Hemoglobin 28.5 pg (28.0-32.0); Mean Corpuscular Volume 84.3 fL (80.0-100.0); Nucleated Red Blood Cells % 0.0 %
[2024-11-28] MEDS: ALBUTEROL SULF 2.5 MG/0.5ML(0.5%) NEB SOLN NEB ONE (21:22)
[2024-11-28] MEDS: IPRATROPIUM BROM 0.5 MG/2.5ML INH SOL NEB ONE (21:22)
[2024-11-28 21:24] LABS: Alanine Aminotransferase 19 U/L (7-40); Albumin 4.7 g/dL (3.2-4.8); Alkaline Phosphatase 88 U/L (46-116); Anion Gap 11 (5-15); BUN/Creatinine Ratio 16.9 (10.0-20.0); Blood Urea Nitrogen 13 mg/dL (9-23); Calcium 9.9 mg/dL (8.7-10.4); Carbon Dioxide 23 mmol/L (20-31); Chloride 106 mmol/L (98-107); Potassium 4.3 mmol/L (3.5-5.1); Sodium 140 mmol/L (136-145); Total Protein 7.7 g/dL (5.7-8.2)
[2024-11-28 21:25] LABS: Bilirubin, Total 0.5 mg/dL (0.2-1.0)
--- NOTE | 2024-11-28 21:26 | ED.PDOC ---
SOB-HPI HPI Comments 85-year-old female came to ER for shortness of breath. Patient has history of asthma. Has been complaining of shortness a breath and chest tightness for the past 3 days, has recently ran out of nebulizers. Persistence of shortness a breath and wheezing prompted patient to come to the ER. Patient is saturating 94% on room air Chief Complaint: Shortness of Breath Time Seen by MD: 21:26 Primary Care Provider: MARCELLA Rios notes: Nurses Notes Information Source: Patient Mode of Arrival: Ambulatory Severity: Moderate Timing: Days Duration: Intermittent Context: At Rest, With Light Exertion History of: COPD Prehospital treatment: Oxygen Associated Signs and Symptoms: Wheeze, Chest Pain Quality: Tightness Radiation: No Radiation Location: Chest (R), Chest (L) If cough with SOB: Non-Productive Past Medical History PAST MEDICAL HISTORY: Arthritis, Asthma, DM, GERD, High Lipids, HTN Surgical History: EDUCATION TRAINER History: No Pertinent EDUCATION TRAINER History Family History Family History: Reviewed,noncontributory to illness Social History Smoker: Non-Smoker Alcohol: Denies ETOH Use Drugs: Denies Drug Use Lives In: Home Constitutional: denies: chills, diaphoresis, fatigue, fever, malaise, sweats, weakness, others EENTM: denies: blurred vision, double vision, ear bleeding, ear discharge, ear drainage, ear pain, ear ringing, eye pain, eye redness, hearing loss, mouth pain, mouth swelling, nasal discharge, nose bleeding, nose congestion, nose pain, photophobia, tearing, throat pain, throat swelling, voice changes, others Respiratory: reports: SOB at rest, shortness of breath, SOB with excertion, wheezing; denies: cough, hemoptysis, orthopnea, stridor, others Cardiovascular: reports: chest pain; denies: dizzy spells, diaphoresis, Dyspnea on exertion, edema, irregular heart beat, left arm pain, lightheadedness, palpitations, PND, syncope, others Gastrointestinal: denies: abdomen distended, abdominal pain, blood streaked bowels, constipated, diarrhea, dysphagia, difficulty swallowing, hematemesis, melena, nausea, poor appetite, poor fluid intake, rectal bleeding, rectal pain, vomiting, others Genitourinary: denies: abnormal vagina bleeding, burning, dyspareunia, dysuria, flank pain, frequency, hematuria, incontinence, pain, , vagina discharge, urgency, others Neurological: denies: dizziness, fainting, headache, left sided numbness, left sided weakness, numbness, paresthesia, pre-existing deficit, right sided numbness, right sided weakness, seizure, speech problems, tingling, tremors, weakness, others Musculoskeletal: denies: back pain, gout, joint pain, joint swelling, muscle pain, muscle stiffness, neck pain, others Integumetry: denies: bruises, change in color, change in hair/nails, dryness, laceration, lesions, lumps, rash, wounds, others Allergic/Immunocompromised: denies: Difficulty Healing, Frequent Infections, Hives, Itching, others Hematologic/Lymphatic: denies: anemia, blood clots, easy bleeding, easy bruising, swollen glands, others Endocrine: denies: excessive hunger, excessive sweating, excessive thirst, excessive urination, flushing, intolerance to cold, intolerance to heat, unexplained weight gain, unexplained weight loss, others Psychiatric: denies: anxiety, bipolar disorder, depression, hopeless, panic disorder, schizophrenia, sleepless, suicidal, others Physical Exam General Appearance: No Apparent Distress, Normal HEENT: Normal ENT Inspection, Pharynx Normal, TMs Normal Neck: Full Range of Motion, Non-Tender, Normal, Normal Inspection Respiratory: Chest Non-Tender, Lungs Clear, No Accessory Muscle Use, Respiratory Distress, Wheezing Cardiovascular: No Edema, No JVD, No Murmur, No Gallop, Normal Peripheral Pulses, Regular Rate/Rhythm Breast Exam: Deferred Gastrointestinal: No Organomegaly, Non Tender, No Pulsatile Mass, Normal Bowel Sounds, Soft Genitalia: Deferred Pelvic: Deferred Rectal: Deferred Extremities: No calf tenderness, Normal capillary refill, Normal inspection, Normal range of motion, Non-tender, No pedal edema Musculoskeletal : Apperance: Normal Neurologic: Alert, lens finisher II-XII nml as Tested, No Motor Deficits, Normal Affect, Normal Mood, No Sensory Deficits Cerebellar Function: Normal Reflexes: Normal Skin: Dry, Normal Color, Warm Lymphatic: No Adenopathy Was a procedure done? Was a procedure done?: No Differential Dx Differential Diagnosis: Asthma, Bronchitis, COPD, Hyperventilation, Pneumonia, Respiratory Distress, URI X-Ray, Labs, Meds, VS Vital Signs Date Time Temp Pulse Resp B/P (MAP) Pulse Ox O2 Delivery O2 Flow Rate FiO2 11/29/24 00:48 93 Room Air* 0 21 11/29/24 00:45 97.8 71 18 141/70 (93) 93 97.8 11/28/24 22:06 97.7 88 18 137/67 (90) 93 97.7 11/28/24 21:22 18 93 Nasal Cannula* 2 28 11/28/24 20:07 98.2 16 20 150/85 95 98.2 Lab Test 11/28/24 21:35 11/28/24 20:50 11/28/24 20:40 Range/Units Troponin I High Sensitivity < 3 L < 3 L </=34 ng/L White Blood Count 8.8 4.4-10.8 10^3/uL Red Blood Count 4.74 4.0-5.20 10^6/uL Hemoglobin 13.5 12.2-16.2 g/dL Hematocrit 40.0 36.0-46.0 % Mean Corpuscular Volume 84.3 80.0-100.0 fL Mean Corpuscular Hemoglobin 28.5 28.0-32.0 pg Mean Corpuscular Hemoglobin Concent 33.8 32.0-36.0 g/dL Red Cell Distribution Width 14.3 11.8-14.3 % Platelet Count 266 140-450 10^3/uL Mean Platelet Volume 8.5 6.9-10.8 fL Neutrophils (%) (Auto) 86.5 H 37.0-80.0 % Lymphocytes (%) (Auto) 11.7 10.0-50.0 % Monocytes (%) (Auto) 1.5 0.0-12.0 % Eosinophils (%) (Auto) 0.0 0.0-7.0 % Basophils (%) (Auto) 0.3 0.0-2.0 % Neutrophils # (Auto) 7.6 1.6-8.6 10 ^3/uL Lymphocytes # (Auto) 1.0 0.4-5.4 10 ^3/uL Monocytes # (Auto) 0.1 0-1.3 10 ^3/uL Eosinophils # (Auto) 0 0-0.8 10 ^3/uL Basophils # (Auto) 0 0-0.2 10 ^3/uL Nucleated Red Blood Cells 0.0 % Sodium Level 140 136-145 mmol/L Potassium Level 4.3 3.5-5.1 mmol/L Chloride Level 106 98-107 mmol/L Carbon Dioxide Level 23 20-31 mmol/L Anion Gap 11 5-15 Blood Urea Nitrogen 13 9-23 mg/dL Creatinine 0.77 0.550-1.02 mg/dL Glomerular Filtration Rate Calc 77 >90 mL/min BUN/Creatinine Ratio 16.9 10.0-20.0 Serum Glucose 179 H 74-106 mg/dL Calcium Level 9.9 8.7-10.4 mg/dL Total Bilirubin 0.5 0.2-1.0 mg/dL Aspartate Amino Transferase (AST) 26 13-40 U/L Alanine Aminotransferase (ALT) 19 7-40 U/L Alkaline Phosphatase 88 46-116 U/L B-Type Natriuretic Peptide 37.76 0-100 pg/mL Total Protein 7.7 5.7-8.2 g/dL Albumin 4.7 3.2-4.8 g/dL Blood Gas Specimen Type Venous Blood Gas Sample Site Vbg - n/a Blood Gas Patient Temperature 37.0 Arterial Blood Date Drawn [id number] Nabeel Test N/a Venous Blood pH 7.382 7.320-7.430 Venous Blood pCO2 at Patient Temp 34.7 L 38.0-54.0 mmHg Venous Blood pO2 at Patient Temp 50.8 H 23.0-48.0 mmHg Venous Blood HCO3 20.2 L 22.0-29.0 mmol/L Venous Blood Base Excess -4.1 L -2.0-3.0 mmol/L Blood Gas Liter Flow 2.00 Blood Gas Modality Nasal cannula FiO2 % 28.0 Current Medications Medications (Trade) Dose Ordered Sig/Erin Route Start Time Stop Time Status Last Admin Albuterol (Ventolin Medneb) 5 mg ONCE ONCE NEB 11/28/24 21:15 11/28/24 21:16 DC 11/28/24 21:22 Ipratropium Shannon (Atrovent Medneb) 0.5 mg ONCE ONCE NEB 11/28/24 21:15 11/28/24 21:16 DC 11/28/24 21:22 Prednisone 40 mg ONCE ONCE PO 11/28/24 21:15 11/28/24 21:16 DC 11/29/24 00:45 Time of 1ST Reevaluation: 21:24 Reevaluation 1ST: Unchanged Patient Education/Counseling: Diagnosis, Treatment Family Education/Counseling: Diagnosis, Treatment SEPSIS Sepsis Screen Date sepsis recognized/suspect: Nov 28, 2024 Time Sepsis recognized/suspect: 2006 Recent Procedure: No On Antibiotic Therapy: No Respiratory Rate >20: No Heart Rate >90: No Temp<36 C (96.8 F) or >38.3 C: No SBP <90 or MAP <65 mmHG: No New Acute Mental Status Change: No Is the patient on CPAP, BIPAP,: No Physician Orders Chest Portable (11/28/24 20:29) Wool Fleece Grader (11/28/24 20:29) Venous Blood Gas (11/28/24 20:29) Vital Signs Date Time Temp Pulse Resp B/P (MAP) Pulse Ox O2 Delivery O2 Flow Rate FiO2 11/29/24 00:48 93 Room Air* 0 11/29/24 00:45 97.8 71 18 141/70 (93) 93 97.8 11/28/24 22:06 97.7 88 18 137/67 (90) 93 97.7 11/28/24 21:22 18 93 Nasal Cannula* 2 11/28/24 20:07 98.2 16 20 150/85 95 98.2 Laboratory Tests Test 11/28/24 20:50 White Blood Count 8.8 10^3/uL (4.4-10.8) Medications Medications Dose Ordered Sig/Erin Route Start Time Stop Time Status Last Admin Dose Admin Albuterol 5 mg ONCE ONCE NEB 11/28/24 21:15 11/28/24 21:16 DC 11/28/24 21:22 Ipratropium Shannon 0.5 mg ONCE ONCE NEB 11/28/24 21:15 11/28/24 21:16 DC 11/28/24 21:22 Prednisone 40 mg ONCE ONCE PO 11/28/24 21:15 11/28/24 21:16 DC 11/29/24 00:45 Departure 1 Departure Time of Disposition: 23:00 Impression: Primary Impression: Acute asthma exacerbation Additional Impression: Asthma exacerbation Disposition: HOME / SELF CARE / HOMELESS Condition: Stable e-Prescriptions Prednisone (Prednisone) 20 Mg Tab 20 MG PO BID for 5 Days, #10 TAB Prov: ELOISA SERNA MD 8/28/25 Azithromycin (Azithromycin) 500 Mg Tab 1 TAB PO DAILY, #5 TAB Prov: ELOISA SERNA MD 11/28/24 Albuterol Sulfate (Albuterol Sulfate Hfa) 108 Mcg/Act Aer 108 MCG IN Q6HP PRN, #1 AER Prov: ELOISA SERNA MD 11/28/24 Discharged With: Self Critical Care Note Critical Care Time?: No Stability Stability form required: No Heart Score Heart Score: Heart Score Response (Comments) Value History N/A 0 EKG N/A 0 Age N/A 0 Risk Factors N/A 0 Troponin N/A 0 Total 0 I personally scribed for ELOISA SERNA MD ([email or web address]) on 11/28/24 at 21:26. Electronically submitted by Binh Garcia ([email or web address]). ELOISA SERNA MD Nov 28, 2024 21:26
--- NOTE | 2024-11-28 21:26 | DVH ---
EXAM: XY CHEST PORTABLE TECHNIQUE: Single frontal chest radiograph CLINICAL HISTORY: sob COMPARISON: XY CHEST PORTABLE on DOS: 10/09/24 Findings/Impression: Frontal chest radiograph demonstrates no acute osseous or superficial soft tissue abnormalities. The trachea is midline. The cardiac silhouette and mediastinum are within normal limits. No pneumothorax, pleural effusions, or consolidations.
[2024-11-28 21:28] LABS: Glucose 179 mg/dL (74-106)
[2024-11-28] MEDS ORDERED: ALBU108A5 IN (23:43)
[2024-11-28] MEDS ORDERED: PRED20TA2 PO (23:43)
[2024-11-28] MEDS ORDERED: AZIT500T66 PO (23:43)
[2024-11-29 00:45] VITALS: BP 141/70; PULSE 71; RESP 18; TEMP 97.8
[2024-11-29] MEDS: predniSONE 20 MG TAB PO ONE (00:45)
[2024-11-29 00:48] VITALS: O2SAT 93
== END 2024-11-29 00:55 | disposition home or self-care (01) ==
LOC: ER 20:05
DX: J45.901 Unspecified asthma with (acute) exacerbation (principal); E11.9 Type 2 diabetes mellitus without complications; I10 Essential (primary) hypertension; J44.1 Chronic obstructive pulmonary disease with (acute) exacerbation; E78.5 Hyperlipidemia, unspecified; M19.90 Unspecified osteoarthritis, unspecified site; F41.9 Anxiety disorder, unspecified; Z98.890 Other specified postprocedural states
CPT/HCPCS: 36415; 36600; 71045; 80053; 82805; 83880; 84484; 85025; 94640; 99284; J7512